=== PATIENT | female | born 1985 | race Caucasian/White ===

== ENCOUNTER 2018-01-31 21:46 | Emergency (ER) | payer MEDICAID ==
--- NOTE | 2018-01-31 22:20 | ED Physician Chart ---
ED Chief Complaint/HPI - Patient Information Date Seen:: 01/31/18 Time Seen:: 22:00 Chief Complaint:: left index finger injury History of Present Illness:: THIS IS A 32 YO FEMALE WHO WAS BITTEN BY HER COCKADOO BIRD THIS PM. SHE IS NOW CONCERNED ABOUT THE BLEEDING, SWELLING AND PAIN IN HER LEFT INDEX FINGER. SHE DENIES HAVING ANY OTHER INJURY AND DENIES HAVING DIABETES MELLITUS. Allergies:: Allergies Allergy/AdvReac Type Severity Reaction Status Date / Time cephalexin [From Keflex] Allergy Verified 01/31/18 22:00 Penicillins [PCN] Allergy Verified 01/31/18 22:00 Vitals:: Vital Signs - 8 hr 01/31/18 21:50 Temp 98.0 F HR 102 RR 19 BP 147/89 O2 Sat % 98 Historian:: Patient Review:: Nurse's Note Reviewed ED Review of Systems - Review of Systems General/Constitutional: No fever, No chills, No weight loss, No weakness, No diaphoresis, No edema, No loss of appetite Skin: No skin lesions, No rash, No bruising Head: No headache, No light-headedness Eyes: No loss of vision, No pain, No diplopia ENT: No earache, No nasal drainage, No sore throat, No tinnitus Neck: No neck pain, No swelling, No thyromegaly, No stiffness, No mass noted Cardio Vascular: No chest pain, No palpitations, No PND, No orthopnea, No edema Pulmonary: No SOB, No cough, No sputum, No wheezing GI: No nausea, No vomiting, No diarrhea, No pain, No melena, No hematochezia, No constipation, No hematemesis G/U: No dysuria, No frequency, No hematuria Musculoskeletal: No bone or joint pain, No back pain, No muscle pain, Other ( LEFT INDEX FINGER,BLEEDING) Endocrine: No polyuria, No polydipsia Psychiatric: No prior psych history, No depression, No anxiety, No suicidal ideation Hematopoietic: No bruising, No lymphadenopathy Allergic/Immuno: No urticaria, No angioedema Neurological: No syncope, No focal symptoms, No weakness, No paresthesia, No headache, No seizure, No dizziness, No confusion, No vertigo ED Past Medical History - Past Medical History Obtainable: Yes Past Medical History: Other (OBESE) Family History: None Social History: Non Smoker, No Alcohol, No Drug Use, Employed Surgical History: None Psychiatricy History: None Medication: Reviewed Family Medical History - Family Member Son History Unknown: Yes Living Status: Still Living ED Physical Exam - Physical Examination General/Constitutional: Awake, Well-developed, well-nourished, Alert, No distress, GCS 15, Non-toxic appearing, Ambulatory Other Gen/Cons comments:: OBESE Head: Atraumatic Eyes: Lids, conjuctiva normal, PERRL, EOMI Skin: Nl inspection, No rash, No skin lesions, No ecchymosis, Well hydrated, No lymphadenopathy ENMT: External ears, nose nl, Nasal exam nl, Lips, teeth, gums nl Neck: Nontender, Full ROM w/o pain, No JVD, No nuchal rigidity, No bruit, No mass, No stridor Respiratory: Nl effort/Exclusion, Clear to Auscultation, No Wheeze/Rhonchi/Rales Cardio Vascular: RRR, No murmur, gallop, rubs, NL S1 S2 GI: No tenderness/rebounding/guarding, No organomegaly, No hernia, Normal BS's, Nondistended, No mass/bruits, No McBurney tenderness : No CVA tenderness Extremities: No tenderness or effusion, Full ROM, normal strength in all extremities, No edema, Normal digits & nails Other Extremities comments:: THE LEFT INDEX FINGER MIDDLE JOINT AREA HAS A 1CM IRREGULAR LACERATION WITH SWELLING AROUND THE JOINT WITH NO BLEEDING AT THE TIME OF EXAMINATION. THE ROM WAS NORMAL BUT PAINFUL. Neuro/Psych: Alert/oriented, DTR's symmetric, Normal sensory exam, Normal motor strength, Judgement/insight normal, Mood normal, Normal gait, No focal deficits Misc: Normal back, No paraspinal tenderness ED Labs/Radiology/EKG Results - Radiology Results Results: LEFT INDEX FINGER X-RAY = NO FRACTURE SEEN. ED Assessment - Assessment General Assessment: BIRD BITE OF THE LEFT INDEX FINGER. - Procedures Informed Consent: Procedure/risk/benefits explained by MD: Yes Laceration Type:: Simple Wound Length: 1 cm Prep/Irrigation:: H2O2 AND BETADINE WAS USED Inspection: Bases & margins visual, NO FB Local Anesthetic:: NONE Comments:: THE LACERATION WAS CLOSED WITH STRI-STRIPS. Splint Care: Splint applied ED Septic Shock - . Is Septic Shock (SBP<90, OR Lactate>4 mmol\L) present?: No - <6hrs of presentation: Vital Signs: Vital Signs - 8 hr 01/31/18 21:50 Temp 98.0 F HR 102 RR 19 BP 147/89 O2 Sat % 98 ED Reassessment (Disposition) - Reassessment Reassessment Condition:: Improved - Diagnosis Diagnosis:: BIRD BITE OF THE LEFT INDEX FINGER. - Aftercare/Follow up Instructions Aftercare/Follow-Up Instructions:: Counseled pt regarding lab results/diagnosis & need follow up, Refer to Discharge Instructions, Counseled pt & family regarding lab results/diagnosis & need follow up Medication Prescribed:: ZITHROMYCIN - Patient Disposition Discharge/Transfer:: Home Condition at Disposition:: Improved
--- NOTE | 2018-02-01 09:31 | Diagnostic Imaging Report ---
Exam: Left second finger HISTORY: Trauma Findings: Multiple views of the left index finger reviewed. The study demonstrates nondisplaced fracture of the distal end of the proximal phalanx left index finger without extension into the joint space. IMPRESSION: Nondisplaced fracture distal and proximal phalanx left index finger.
== END 2018-01-31 23:10 | disposition home or self-care (01) ==
LOC: ER 21:46
DX: S61.251A Open bite of left index finger without damage to nail, initial encounter (principal); Z88.0 Allergy status to penicillin; Z88.1 Allergy status to other antibiotic agents; W61.91XA Bitten by other birds, initial encounter; Y93.89 Activity, other specified; Y92.89 Other specified places as the place of occurrence of the external cause; Y99.8 Other external cause status
CPT/HCPCS: 73140-TC-F1; Z7502